=== PATIENT | male | born 1990 | race Caucasian/White ===

== ENCOUNTER 2022-02-07 15:45 | Inpatient (IN) | payer MEDICAID, SELFPAY ==
[2022-02-07 15:51] VITALS: BP 162/109; PULSE 80; RESP 17; TEMP 36.8; O2SAT 96; BMI 30.1
[2022-02-07] MEDS: OLANZapine 5 mg ODT PO (16:15)
--- NOTE | 2022-02-07 16:15 | PC.NURSE ---
PRN ZYPREXA ZYDIS 5 MG GIVEN PO PER PT C/O ANXIETY/AGITATION. PT STATED HE USUALLY GETS ATIVAN WHEN HE GETS UPSET
--- NOTE | 2022-02-07 16:39 | PC.ADMIT ---
[facility] Admission Note: The patient,Otto Ann,31 y/o, was given written information regarding hospital policies, unit procedures and contact persons. Patient's smoking status: . Vital Signs - 8 hr 02/07/22 15:51 Temperature 98.3 F Pulse Rate 80 Respiratory Rate 17 Blood Pressure 162/109 Pulse Oximetry 96 ADMITTED FROM [facility] IN LEFT HAND VIA AMBULANCE AT 1530. PT REPORTS INCREASED DEPRESSION/ANXIETY AND SUICIDAL THOUGHTS THE PAST FEW DAYS. PT STATES HE HAS HAD 2 PREVIOUS ATTEMPTS TO KILL HIMSELF. PT REPORTS HE IS AN ALCOHOLIC AND BINGE DRINKS, DRINKING A PINT TO A GALLON AND HALF EVERY TIME HE DRINKS. PT STATES HE HAD A PLAN TO OVERDOSE ON ASPIRIN DUE TO LIFE NOT BEING WORTH LIVING AND FINANCIAL STRESSORS. PT STATES HE HAS BEEN DIAGNOSED WITH MAJOR DEPRESSION, ANXIETY, ADHD, ALCOHOL ABUSE AND ALCOHOLIC HALLUCINATIONS. UDS WAS NEG AND ETOH NEG. PT IS UNEMPLOYED AND LIVES WITH HIS GRANDFATHER. PT REPORTS 6-[facility] IN THE PAST 10 YEARS WITH NONE OF THEM WORKING DENIES DRUG USE. HAS NO KNOWN DRUG ALLERGIES AND TAKES NO HOME MEDICATIONS. ORIENTATED TO UNIT. ALL QUESTIONS ANSWERED AND SUPPORT VOICED. ZYDIS GIVEN ORDERED UPON ADMISSION DUE TO INCREASED ANXIETY.
[2022-02-07] MEDS: nicotine 2 mg Gum BUCCAL (18:34)
[2022-02-07 20:07] VITALS: RESP 18
--- NOTE | 2022-02-07 21:36 | PC.NURSE ---
PT IN WITHDRAWN TO ROOM. RESTING ON BED. REFUSED VS WITH VEHICLE FARE COLLECTOR THEN REFUSED TO ALLOW THIS NURSE TO LISTEN TO HEART AND LUNG SOUNDS. MINIMAL RESPONSES TO ASSESSMENT QUESTIONS. DOES DENY AVH AND HI. ENDORSES CONTINUED SI. WHEN QUESTIONED FURTHER DENIES HAVING A PLAN OR ON INTENT BUT STATES HE'D JUST RATHER NOT BE HERE ANYMORE. DOES CONTRACT FOR SAFETY WITH STAFF. REMAINS RESTING IN BED AT THIS TIME.
[2022-02-08 06:00] VITALS: BP 132/85; PULSE 54; RESP 20; TEMP 36.5; O2SAT 96
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
[2022-02-08] MEDS: ARIPiprazole 2 mg Tablet PO (08:09)
[2022-02-08] MEDS: buPROPion XL (24 HR) 150 mg Tablet PO (08:09)
[2022-02-08] MEDS: nicotine 2 mg Gum BUCCAL ×2 (08:10→17:18)
[2022-02-08] MEDS: hyDROXYzine 25 mg Capsule 50 MG PO (08:10)
[2022-02-08 14:00] VITALS: BP 128/83; PULSE 81; RESP 18; TEMP 36.6; O2SAT 96
[2022-02-08 20:32] VITALS: BP 136/80; PULSE 71; RESP 16; TEMP 36.7; O2SAT 96
[2022-02-09 06:00] VITALS: BP 136/82; PULSE 68; RESP 20; TEMP 36.5; O2SAT 93
[2022-02-09] MEDS: buPROPion XL (24 HR) 150 mg Tablet PO (08:29)
[2022-02-09] MEDS: ARIPiprazole 2 mg Tablet PO (08:30)
[2022-02-09] MEDS: nicotine 2 mg Gum BUCCAL ×2 (08:30→17:49)
[2022-02-09] MEDS: lisinopril 20 mg Tablet PO (11:49)
--- NOTE | 2022-02-09 11:50 | PC.NURSE ---
Administered 20mg lisinopril for BP of 153/103, pt's home med of linsinopril restarted today.
--- NOTE | 2022-02-09 13:49 | PC.NURSE ---
0830 administered Nicotine gum to pt having withdrawl.
[2022-02-09 14:00] VITALS: BP 148/105; PULSE 83; RESP 16; TEMP 36.7; O2SAT 97
--- NOTE | 2022-02-09 15:51 | W.PM.NPUPNS ---
Subjective NPU Subjective: Patient presents today reporting that he is glad he came to the hospital. He reports he had been struggling with intermittent alcohol use and that he has had limited stability. His grandfather has been a great support he feels somewhat embarrassed that he has not made better use of that support. He and Dr. Gotti restarted Wellbutrin and Abilify was added effective in the past and reports he denied having any problems with medication at this time. He reports that he knows that he needs to chill with the drinking and be consistent with his medication. We discussed a plan for discharge that would be based on his reported and evaluated concerns for safety. Mental Status Exam MSE Comments: This is an overweight versus obese white male in hospital scrubs with adequate grooming and eye contact. No abnormal movements except for mild psychomotor retardation. Cooperative with exam in mild distress. Speech was slightly decreased rate and volume. Mood described as a little better than when I presented to the hospital, affect slightly subdued. Thought process organized, thought content: patient denies suicidal or homicidal ideation, there were no delusions reported or noted, he denied any auditory or visual hallucinations. Attention and concentration were intact and memory appeared reliable but none were formally tested. He?s alert and oriented times three. Insight and judgment appeared fair and impulse control appeared fair Vitals/I&O/Wt Last Vital Signs Temp 98.0 F 02/09/22 14:00 Pulse 83 02/09/22 14:00 Resp 16 02/09/22 14:00 BP 148/105 02/09/22 14:00 Pulse Ox 97 02/09/22 14:00 A&P Assessment and plan (1) Major depressive disorder: Status: Acute (2) Alcohol dependence: Status: Acute (3) Suicidal ideation: Status: Acute Plan This is a 31-year-old male who reports about 14 years of depression who has recently responded to Wellbutrin and Abilify but stopped taking it about a month ago and is more depressed with suicidal ideation. Plan: 1.? Wellbutrin 150 mg and Abilify 2 mg and increase as tolerated 2.? Continue every 15 minute checks for safety. 3.? Encourage individual, group and milieu therapies. 4.? Encourage sober living treatment after discharge at the highest level of care to which he is willing to commit. 5.? We will monitor for safety for himself in the community prior to discharge. Involuntary Hold Information 96 Hour Hold: 96 Hour Involuntary Admission: No Attestations NPU Medical Necessity Statement*: Inpatient hospitalization is medically necessary and the clinically appropriate intervention at this time.? We will initiate medications and make changes as indicated.? Likely length of stay 2-5 days Coding Level of Care Code Acute Recreation Establishment Manager for [facility] Fwd Diagnoses Major depressive disorder F32.9 Alcohol dependence F10.20 Suicidal ideation R45.855
[2022-02-09 21:18] VITALS: BP 128/88; PULSE 79; RESP 16; TEMP 36.9; O2SAT 96
[2022-02-10 06:00] VITALS: BP 138/72; PULSE 72; RESP 16; TEMP 36.7; O2SAT 97
[2022-02-10] MEDS: nicotine 2 mg Gum BUCCAL ×2 (08:14→11:18)
[2022-02-10] MEDS: buPROPion XL (24 HR) 150 mg Tablet PO (08:15)
[2022-02-10] MEDS: lisinopril 20 mg Tablet PO (08:15)
[2022-02-10] MEDS: ARIPiprazole 2 mg Tablet PO (08:15)
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
[2022-02-10 12:18] VITALS: BP 138/72; PULSE 72; RESP 16; TEMP 36.7; O2SAT 97
== END 2022-02-10 12:50 | disposition home or self-care (01) | DRG 881 ==
PROVIDERS: Admitting Provider Psychiatry & Neurology Psychiatry; Visit Provider Psychiatry & Neurology Psychiatry
DX: F32.9 Major depressive disorder, single episode, unspecified (principal); R45.851 Suicidal ideations; F41.1 Generalized anxiety disorder; F10.20 Alcohol dependence, uncomplicated; Z81.1 Family history of alcohol abuse and dependence
CPT/HCPCS: 97150; 97165